=== PATIENT | male | born 1995 | race Caucasian/White ===

== ENCOUNTER 2020-08-13 15:13 | Emergency (ER) | payer MEDICAID ==
[~2020-08-13] VITALS: Ht 172.7 cm; Wt 116.1 kg
[2020-08-13 15:19] VITALS: Ht 172.7 cm; Wt 116.1 kg
[2020-08-13 17:30] VITALS: BP 105/71
== END 2020-08-13 17:30 | disposition home or self-care (01) ==
LOC: ED 15:13
DX: S00.33XA Contusion of nose, initial encounter (principal); Y04.8XXA Assault by other bodily force, initial encounter; Y93.89 Activity, other specified; Y92.89 Other specified places as the place of occurrence of the external cause; Y99.8 Other external cause status
CPT/HCPCS: J1885